=== PATIENT | male | born 1960 | race African-American/Black ===

== ENCOUNTER 2021-01-07 07:50 | Inpatient (IN) | payer OTHER ==
[2021-01-07] VITALS (9 sets, daily range): BP systolic 110–149; BP diastolic 68–99
[~2021-01-07] VITALS: Ht 182.9 cm; Wt 128.1 kg
[~2021-01-07 07:50] MED LIST: ALBUAER3 IN; GABA300C10 PO; METF-370 PO; SIMV-13 PO
[2021-01-07] MEDS ORDERED: KETOROLAC TROMETH 30 MG/ML 1ML VIAL ONE (08:06)
[2021-01-07] MEDS ORDERED: VANCOMYCIN HCL 1000 MG VL ONE (08:06)
[2021-01-07] MEDS ORDERED: TRANEXAMIC ACID 20 ML ONE (08:08)
[2021-01-07] MEDS ORDERED: BUPIVACAINE 0.25% INJ 50ML VIAL ONE (08:09)
[2021-01-07] MEDS ORDERED: DexAMETHasone SOD PHOS 10MG/1ML VIAL INJ IV ONE (08:31)
[2021-01-07] MEDS ORDERED: TETRACAINE 1% INJ 2 ML VIAL IJ ONE (08:34)
[2021-01-07] MEDS ORDERED: ceFAZolin 1GM/50ML 150 ML IV ONE (08:39)
[2021-01-07] MEDS ORDERED: MORPHINE SULF(PF) 0.5MG/ML 10ML VIAL ONE (08:54)
[2021-01-07] MEDS ORDERED: MIDAZOLAM HCL 1MG/1ML-2 ML VIAL ONE ×4 (08:54→11:17)
[2021-01-07] MEDS ORDERED: fentaNYL CITRATE 100 MCG/2 ML VL ONE (08:54)
[2021-01-07] MEDS ORDERED: LABETALOL HCL 5 MG/ML 4ML SYRINGE IV PRN (09:30)
[2021-01-07] MEDS ORDERED: HYDROmorphone HCL 2 MG/ML VL IV PRN (09:30)
[2021-01-07] MEDS ORDERED: ePHEDrine SULFATE 50 MG/ML AMP IV PRN (09:30)
[2021-01-07] MEDS ORDERED: NALOXONE HCL 0.4 MG/ML VIAL IV PRN (09:30)
[2021-01-07] MEDS ORDERED: MIDAZOLAM HCL 1MG/1ML-2 ML VIAL IV PRN (09:30)
[2021-01-07] MEDS ORDERED: ACCU-CHEK COMFORT CURVE STRIP VI ONE (09:30)
[2021-01-07] MEDS ORDERED: NALBUPHINE HCL 10 MG/1ml INJECTION SUBCUT ONE (09:30)
[2021-01-07] MEDS ORDERED: hydrALAZINE HCL 20 MG/ML VL IV PRN (09:30)
[2021-01-07] MEDS ORDERED: DexAMETHasone SOD PHOS 10MG/1ML VIAL INJ IV PRN (09:30)
[2021-01-07] MEDS ORDERED: KETOROLAC TROMETH 30 MG/ML 1ML VIAL IV PRN (09:30)
[2021-01-07] MEDS ORDERED: diphenhdrAMINE HCL 50 MG/1 ML VL IV PRN (09:30)
[2021-01-07] MEDS ORDERED: ONDANSETRON HCL 4 MG/2 ML VIAL IV PRN (09:30)
[2021-01-07] MEDS ORDERED: MORPHINE SULF INJ 2 MG/ML SYRINGE 1ML IV PRN (12:30)
[2021-01-07] MEDS ORDERED: oxyCODONE HCL 5MG TAB PO PRN ×2 (12:30)
[2021-01-07] MEDS ORDERED: NITROGLYCERIN 0.4 MG SL TAB SL PRN (12:30)
[2021-01-07] MEDS: ceFAZolin 3 GM in D5W 5% 100 ML IV SCH ×2 (15:07→22:00)
[2021-01-07] MEDS: SODIUM CHLORIDE 0.9% 1,000 ML IV SCH ×2 (16:14→20:30)
[2021-01-07] MEDS: HYDROmorphone HCL 2 MG/ML VL IV PRN (16:43)
[2021-01-07] MEDS ORDERED: CHOL20007 PO (16:57)
[2021-01-07] MEDS ORDERED: SILD20TA12 PO (16:57)
[2021-01-07] MEDS ORDERED: CYCL10TA6 PO (16:57)
[2021-01-07] MEDS ORDERED: FERR-7 PO (16:57)
[2021-01-07] MEDS ORDERED: ASPI-498 PO (16:57)
[2021-01-07] MEDS: PREGABALIN 25 MG CAP PO SCH (20:59)
[2021-01-07] MEDS: metFORMIN HYDROCHLORIDE 500 MG TAB PO SCH (20:59)
[2021-01-08] VITALS (14 sets, daily range): BP systolic 116–140; BP diastolic 61–80
[2021-01-08] MEDS: ACETAMINOPHEN 325 MG TAB PO SCH ×5 (00:25→18:16)
[2021-01-08] MEDS: KETOROLAC TROMETH 30 MG/ML 1ML VIAL IV SCH ×5 (00:29→18:15)
[2021-01-08] MEDS: SODIUM CHLORIDE 0.9% 1,000 ML IV SCH ×3 (02:59→20:39)
[2021-01-08] MEDS: HYDROmorphone HCL 2 MG/ML VL IV PRN ×3 (03:21→22:47)
[2021-01-08 07:05] LABS: Basophils # (auto) 0 10 ^3/uL (0-0.2); Basophils % (auto) 0.4 % (0.0-2.0); Eosinophils # (auto) 0 10 ^3/uL (0-0.8); Eosinophils % (auto) 0.3 % (0.0-7.0); Hematocrit 36.1 % (41.0-53.0); Hemoglobin 12.5 g/dL (13.5-17.5); Lymphocytes # (auto) 1.9 10 ^3/uL (0.4-5.4); Mean Corpuscular Hemoglobin 28.9 pg (28.0-32.0); Mean Corpuscular Hgb Conc. 34.7 g/dL (32.0-36.0); Mean Corpuscular Volume 83.4 fL (80.0-100.0); Monocytes # (auto) 1.4 10 ^3/uL (0-1.3); Monocytes % (auto) 15.6 % (0.0-12.0); Neutrophils # (auto) 5.9 10 ^3/uL (1.6-8.6); Neutrophils % (auto) 63.7 % (37.0-80.0); Nucleated Red Blood Cells % 0.3 %; Platelet Count (auto) 254 10^3/uL (140-450); Red Blood Cells 4.32 10^6/uL (4.5-5.90); Red Cell Distribution Width 16.2 % (11.8-14.3); White Blood Cell 9.3 10^3/uL (4.4-10.8)
[2021-01-08 07:22] LABS: Calcium 7.8 mg/dL (8.5-10.1)
[2021-01-08 07:24] LABS: BUN/Creatinine Ratio 11.8
[2021-01-08] MEDS: ASPirin 81 mg TAB PO SCH ×3 (10:10→22:45)
[2021-01-08] MEDS: metFORMIN HYDROCHLORIDE 500 MG TAB PO SCH ×2 (10:11→22:45)
[2021-01-08] MEDS: PREGABALIN 25 MG CAP PO SCH ×2 (10:11→22:45)
[2021-01-09] MEDS: ACETAMINOPHEN 325 MG TAB PO SCH ×3 (00:02→12:17)
[2021-01-09] MEDS: KETOROLAC TROMETH 30 MG/ML 1ML VIAL IV SCH ×3 (00:02→12:18)
[2021-01-09] MEDS: SODIUM CHLORIDE 0.9% 1,000 ML IV SCH (04:37)
[2021-01-09 05:00] VITALS: BP 115/65
[2021-01-09 09:00] VITALS: BP 120/63
[2021-01-09] MEDS: HYDROmorphone HCL 2 MG/ML VL IV PRN (10:08)
[2021-01-09] MEDS: metFORMIN HYDROCHLORIDE 500 MG TAB PO SCH (11:15)
[2021-01-09] MEDS: ASPirin 81 mg TAB PO SCH (11:15)
[2021-01-09] MEDS: PREGABALIN 25 MG CAP PO SCH (11:16)
[2021-01-09 13:00] VITALS: BP 145/81
== END 2021-01-09 15:45 | disposition home health service (06) | DRG 470 ==
LOC: OVERFLOW 08:00 → TELE 08:01 → WEST WING 13:12
PROVIDERS: ADMIT Orthopaedic Surgery; ATTEND Orthopaedic Surgery
PROC: 0SRD069 Replacement of Left Knee Joint with Oxidized Zirconium on Polyethylene Synthetic Substitute, Cemented, Open Approach (ICD-10-PCS; principal; 2021-01-07 08:41)
DX: M17.12 Unilateral primary osteoarthritis, left knee (principal); D62 Acute posthemorrhagic anemia; Z20.822 Contact with and (suspected) exposure to COVID-19; Z88.0 Allergy status to penicillin
CPT/HCPCS: 36415; 73562; 80048; 82962; 85025; 86850; 86900; 86901; 93971; 97110; 97116; 97163; 97530; C1713; G0378; J0690; J1100; J1885; J2250; J3490; J7060

== ENCOUNTER 2021-12-30 09:32 | Inpatient (IN) | payer OTHER ==
[2021-12-26 13:40] LABS: Basophils # (auto) 0.1 10 ^3/uL (0-0.2); Basophils % (auto) 1.5 % (0.0-2.0); Eosinophils # (auto) 0.2 10 ^3/uL (0-0.8); Eosinophils % (auto) 2.1 % (0.0-7.0); Hematocrit 40.2 % (41.0-53.0); Hemoglobin 13.5 g/dL (13.5-17.5); Lymphocytes # (auto) 2.1 10 ^3/uL (0.4-5.4); Lymphocytes % (auto) 23.2 % (10.0-50.0); Mean Corpuscular Hemoglobin 27.2 pg (28.0-32.0); Mean Corpuscular Hgb Conc. 33.6 g/dL (32.0-36.0); Monocytes # (auto) 0.8 10 ^3/uL (0-1.3); Neutrophils # (auto) 5.8 10 ^3/uL (1.6-8.6); Neutrophils % (auto) 64.2 % (37.0-80.0); Nucleated Red Blood Cells % 0.2 %; Red Blood Cells 4.96 10^6/uL (4.5-5.90); Red Cell Distribution Width 16.9 % (11.8-14.3); White Blood Cell 9.1 10^3/uL (4.4-10.8)
[2021-12-26 14:02] LABS: Albumin 3.9 g/dL (3.4-5.0); Calcium 9.2 mg/dL (8.5-10.1); INR 1.03 (0.9-1.15); Potassium 3.9 mmol/L (3.5-5.1)
[2021-12-26 14:03] LABS: Urine Bacteria NONE SEEN /hpf (None Seen); Urine Blood Negative /uL (Negative); Urine Mucus FEW (None Seen); Urine Specific Gravity 1.028 (1.001-1.035); Urine WBC 1 /hpf (0 - 3)
[2021-12-26 14:05] LABS: BUN/Creatinine Ratio 10.9
[2021-12-26 14:08] LABS: Bilirubin, Total 0.7 mg/dL (0.2-1.0); Total Protein 7.6 g/dL (6.4-8.2)
[~2021-12-30] VITALS: Ht 182.9 cm; Wt 132.5 kg
[2021-12-30] VITALS (9 sets, daily range): BP systolic 103–144; BP diastolic 59–86
[~2021-12-30 09:32] MED LIST changes: +ASPI-498 PO; +BUDE1AER4 IN; +CHOL20007 PO; +CYCL-839 PO; +FERR-7 PO; +FLUT50SP; +GLIP5TAB12 PO; +MONT-8 PO; +PHENYLEPHRINE HCL 10 MG/ML VL IV ONE; +SILD20TA12 PO
[2021-12-30] MEDS ORDERED: CLINDAMYCIN 900MG IV 50 ML IV ONE (09:47)
[2021-12-30] MEDS ORDERED: MIDAZOLAM HCL 2MG/2ML 2ml VIAL (1mg/ml) ONE ×3 (10:57→16:31)
[2021-12-30] MEDS ORDERED: fentaNYL CITRATE 100 MCG/2 ML VL ONE ×2 (10:57→16:30)
[2021-12-30] MEDS ORDERED: TETRACAINE 1% INJ 2 ML VIAL IJ ONE (11:13)
[2021-12-30] MEDS ORDERED: MORPHINE SULF PF 2 MG/2 ML SYRG ONE (11:14)
[2021-12-30] MEDS ORDERED: VANCOMYCIN HCL 1000 MG VL ONE (11:15)
[2021-12-30] MEDS ORDERED: DexAMETHasone SOD PHOS 10MG/1ML VIAL INJ ONE (11:54)
[2021-12-30] MEDS ORDERED: PROPOFOL 10 MG/ML 20 ML IV ONE (11:56)
[2021-12-30] MEDS ORDERED: diphenhdrAMINE HCL 50 MG/1 ML VL IV PRN (12:15)
[2021-12-30] MEDS ORDERED: HYDROmorphone HCL 2 MG/ML VL IV PRN ×2 (12:15→14:15)
[2021-12-30] MEDS ORDERED: LABETALOL HCL 5 MG/ML 4ML SYRINGE IV PRN (12:15)
[2021-12-30] MEDS ORDERED: ONDANSETRON HCL 4 MG/2 ML VIAL IV PRN (12:15)
[2021-12-30] MEDS ORDERED: ePHEDrine SULFATE 50 MG/ML AMP IV PRN (12:15)
[2021-12-30] MEDS ORDERED: NALBUPHINE HCL 10 MG/1ml INJECTION SUBCUT ONE (12:15)
[2021-12-30] MEDS ORDERED: MIDAZOLAM HCL 2MG/2ML 2ml VIAL (1mg/ml) IV PRN (12:15)
[2021-12-30] MEDS ORDERED: NALOXONE HCL 0.4 MG/ML VIAL IV PRN (12:15)
[2021-12-30] MEDS ORDERED: TRANEXAMIC ACID 20 ML ONE (12:30)
[2021-12-30] MEDS ORDERED: ALBUTEROL SULF HFA 90MCG INH 200DOSE IN PRN (14:15)
[2021-12-30] MEDS: D5W/LACTATED RINGERS 1,000 ML IV SCH (14:15)
[2021-12-30] MEDS ORDERED: oxyCODONE HCL 5MG TAB PO PRN (14:15)
[2021-12-30] MEDS ORDERED: CYCLOBENZAPRINE HCL 10 MG TAB PO PRN (14:15)
[2021-12-30] MEDS ORDERED: ACETAMINOPHEN 325 MG TAB PO PRN (14:15)
[2021-12-30] MEDS: ACETAMINOPHEN 325 MG TAB PO SCH ×2 (18:21→23:57)
[2021-12-30] MEDS: KETOROLAC TROMETH 30 MG/ML 1ML VIAL IV SCH ×2 (18:22→23:57)
[2021-12-30] MEDS: metFORMIN HYDROCHLORIDE 500 MG TAB PO SCH (18:23)
[2021-12-30] MEDS: CLINDAMYCIN 600MG IV 50 ML IV SCH (18:24)
[2021-12-30] MEDS ORDERED: ALBUTEROL SULF 2.5 MG/0.5ML(0.5%) NEB SOLN NEB PRN (21:45)
[2021-12-30] MEDS: PREGABALIN 25 MG CAP PO SCH (22:18)
[2021-12-31] VITALS (16 sets, daily range): BP systolic 108–144; BP diastolic 67–84
[2021-12-31] MEDS: CLINDAMYCIN 600MG IV 50 ML IV SCH (01:25)
[2021-12-31] MEDS: D5W/LACTATED RINGERS 1,000 ML IV SCH ×3 (05:42→20:15)
[2021-12-31] MEDS: ACETAMINOPHEN 325 MG TAB PO SCH ×4 (05:43→23:26)
[2021-12-31] MEDS: KETOROLAC TROMETH 30 MG/ML 1ML VIAL IV SCH ×4 (05:43→23:17)
[2021-12-31] MEDS: metFORMIN HYDROCHLORIDE 500 MG TAB PO SCH ×2 (06:26→17:41)
[2021-12-31 09:23] LABS: Hematocrit 39.4 % (41.0-53.0); Hemoglobin 13.4 g/dL (13.5-17.5); Mean Corpuscular Hemoglobin 27.4 pg (28.0-32.0); Mean Corpuscular Volume 80.4 fL (80.0-100.0); Red Cell Distribution Width 16.8 % (11.8-14.3); White Blood Cell 11.3 10^3/uL (4.4-10.8)
[2021-12-31 09:40] LABS: Band Neutrophils % (manual) 0; Basophils % (manual) 0 (0.0-2.0); Blast Cells 0; Eosinophils % (manual) 0 (0-7); Metamyelocytes % 0; Myelocytes % 0; Promyelocytes % 0; Reactive Lymphocytes 0
[2021-12-31 09:44] LABS: BUN/Creatinine Ratio 11.3; Calcium 8.7 mg/dL (8.5-10.1)
[2021-12-31] MEDS: glipiZIDE 5 MG TAB PO SCH (10:12)
[2021-12-31] MEDS: MONTELUKAST SODIUM 10 MG TAB PO SCH (10:12)
[2021-12-31] MEDS: PREGABALIN 25 MG CAP PO SCH ×2 (10:12→21:30)
[2021-12-31] MEDS: ASPirin 81 mg TAB PO SCH ×2 (10:12→21:28)
[2021-12-31] MEDS: oxyCODONE HCL 5MG TAB PO PRN ×2 (10:40→19:03)
[2021-12-31 11:54] LABS: Lymphocytes % (manual) 20 (10.0-50.0); Monocytes % (manual) 16 (0-12)
[2022-01-01] MEDS: D5W/LACTATED RINGERS 1,000 ML IV SCH (02:16)
[2022-01-01 05:00] VITALS: BP 128/73
[2022-01-01] MEDS: ACETAMINOPHEN 325 MG TAB PO SCH ×2 (05:58→12:00)
[2022-01-01] MEDS: metFORMIN HYDROCHLORIDE 500 MG TAB PO SCH (05:58)
[2022-01-01] MEDS: KETOROLAC TROMETH 30 MG/ML 1ML VIAL IV SCH ×2 (06:25→12:00)
[2022-01-01 09:00] VITALS: BP 120/65
[2022-01-01] MEDS: ASPirin 81 mg TAB PO SCH (09:54)
[2022-01-01] MEDS: PREGABALIN 25 MG CAP PO SCH (09:55)
[2022-01-01] MEDS: MONTELUKAST SODIUM 10 MG TAB PO SCH (09:55)
[2022-01-01] MEDS: glipiZIDE 5 MG TAB PO SCH (10:00)
[2022-01-01] MEDS ORDERED: SILDENAFIL CITRATE 20 MG TAB PO SCH (12:30)
[2022-01-01] MEDS ORDERED: GABAPENTIN 300 MG CAP PO SCH (12:30)
[2022-01-01 13:00] VITALS: BP 122/71
[2022-01-01 15:26] VITALS: BP 135/72
[2022-01-01] MEDS ORDERED: ATORVASTATIN 20 MG TAB PO SCH (22:00)
[2022-01-01] MEDS ORDERED: FLUTICASONE PROP NASAL SPR 0.05 % (50MCG) 16GM SCH (22:00)
== END 2022-01-01 16:30 | disposition home or self-care (01) | DRG 489 ==
LOC: SUR 09:32 → TELE 14:06 → TELE-EAST 15:00
PROVIDERS: ADMIT Orthopaedic Surgery; ATTEND Orthopaedic Surgery
PROC: 0SUW09Z Supplement Left Knee Joint, Tibial Surface with Liner, Open Approach (ICD-10-PCS; 2021-12-30)
PROC: 0SPD09Z Removal of Liner from Left Knee Joint, Open Approach (ICD-10-PCS; principal; 2021-12-30 11:30)
DX: M25.362 Other instability, left knee (principal); Z96.652 Presence of left artificial knee joint; Z20.822 Contact with and (suspected) exposure to COVID-19
CPT/HCPCS: 36415; 73562; 80048; 80053; 81001; 82962; 85007; 85025; 85027; 85610; 85730; 86850; 86900; 86901; 97116; 97530; G0378; J1100; J1885; J2250; J2405; J2704; J3490